=== PATIENT | male | born 1955 | race Caucasian/White ===

== ENCOUNTER 2017-06-03 16:12 | Observation (INO) ==
--- NOTE | 2017-06-03 16:31 | EKG Report ---
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
[2017-06-03 17:16] LABS: Basophils % 0.4 % (0.0-0.8); Eosinophils # 0.4 10*3/uL (0.0-0.87); Eosinophils % 4.6 % (0.00-10.9); Hematocrit 42.7 VOL% (42.0-52.0); Hemoglobin 14.4 GM/DL (14.0-18.0); Immature Granulocytes % 0.3 %; Immature Granulocytes Absolute 0.02 #; Lymphocytes # 2.5 10*3/uL (1.4-4.0); Lymphocytes % 31.8 % (21.2-54.2); Mean Corpuscular HGB Conc 33.7 GM/DL (32-36); Mean Corpuscular Hemoglobin 30 PG (27-34); Mean Corpuscular Volume 89.1 FL (87-102); Mean Platelet Volume 9.1 FL (9.6-12.0); Monocytes # 0.7 10*3/uL (0.11-0.8); Monocytes % 8.5 % (1.7-12.7); Neutrophils # 4.2 10*3/uL (1.4-7.4); Neutrophils % 54.4 % (38.7-73.9); Platelet Count 325 T/CUMM (130-400); Red Blood Count 4.79 MC/CUMM (3.8-5.5); Red Cell Distribution Width 13.2 % (9.3-17.3); White Blood Count 7.8 T/CUMM (4-12)
--- NOTE | 2017-06-03 17:21 | XRay Report ---
2 view chest 06/03/2017 5:15 PM Indication: Shortness of breath Comparison: March 27, 2016 Findings: Cardiomediastinal contours are stable. Bibasilar fibrosis. No acute osseous abnormalities. Visualized upper abdomen demonstrates no acute pathology. Impression: No acute cardiopulmonary findings PROCEDURE INTERPRETED AT [facility] DEPARTMENT OF RADIOLOGY Final Report Signed by: Derick Faria
[2017-06-03] MEDS ORDERED: CALCIUM CHLORIDE 1,000 MG/10 ML SYRINGE IV ONE (17:32)
[2017-06-03] MEDS ORDERED: ASPIRIN CHEW 81 MG TABLET PO STA (17:50)
[2017-06-03 17:54] LABS: Albumin 3.6 G/DL (3.4-5.0); Bilirubin,Total 0.6 MG/DL (0.2-1.0); Calcium 8.7 MG/DL (8.5-10.1); Osmolality,Calculated 277.5 MOS/KG (273-304); Potassium 4.1 MMOL/L (3.5-5.1); Total Protein 6.9 G/DL (6.4-8.3); Troponin I Only < 0.015 NG/ML (0.00-0.045)
[2017-06-03] MEDS ORDERED: ASPIRIN 325 MG TABLET ONE (18:49)
--- NOTE | 2017-06-03 18:56 | Emergency Department Note ---
I, Soila Guthrie, am scribing for, and in the presence of, Sergio Hess MD 17:08. IJimena Hans, MD, personally performed the services described in this documentation, ascribed by Soila Guthrie in my presence, and it is both accurate and complete [id number] . Arrival - Arrival Chief Complaint: Chest Pain Stated Complaint: SOB,Heart ED Nursing Triage Note: increased sob over the past two weeks with chest tightness that started today. Mode of Arrival: Ambulatory Limitations: No Limitations Source: Patient Time Seen by Provider: 06/03/17 16:35 - History of Present Illness HPI Narrative: Pt is a 62 y/o male who came to ED with c/o chest "tightness" that has been ongoing for a week, worsened in the past 3 days and constant today. Pt notes having SOB with tightness, and describes chest tightness not serious enough to call painful, just constant. Pt reports having 2x angioplasty with heart cath and those sxs were different from today's visit. Spouse notes pt only had SOB with both angioplasty. He states he felted the sxs then were a "pushed in" sensation, but now just having tightness. Along with sensation lasting longer, than previous days. Pt has associated sxs of nausea, and lightheadedness, but denies cough, rhinorrhea, dysuria. He admits to taking fluid pills. FMHx of heart disease and DM. Pt denies smoking hx. Onset (ago): day(s) Consistency: constant, intermittent Severity: moderate Severity scale (1-10): 4 Quality: aching Allergies/Adverse Reactions: Allergies Allergy/AdvReac Type Severity Reaction Status Date / Time No Known Allergies Allergy Verified 03/27/16 09:28 Home Medications: Home Medications Medication Instructions Recorded Confirmed Type Aspirin [Ecotrin] 325 mg PO DAILY 03/27/16 04/09/16 History Benazepril [Lotensin] 5 mg PO DAILY 03/27/16 04/09/16 History Carvedilol 6.25 mg PO BID 03/27/16 04/09/16 History Furosemide Tab [Lasix Tab] 40 mg PO BID 03/27/16 04/09/16 History Magnesium Oxide [Magnesium] 400 mg PO BID 03/27/16 04/09/16 History Meloxicam [Mobic] 15 mg PO DAILY 03/27/16 04/09/16 History NIFEdipine [Nifedipine ER] 30 mg PO DAILY 03/27/16 04/09/16 History Nitroglycerin [Nitroglycerin SL 0.4 mg SL Q5M PRN 03/27/16 04/09/16 History Tab] Omeprazole 20 mg PO DAILY 03/27/16 04/09/16 History Potassium Chloride [Klor-Con M20] 20 meq PO BID 03/27/16 04/09/16 History Rosuvastatin Calcium [Crestor] 5 mg PO BEDTIME 03/27/16 04/09/16 History Diclofenac Potassium 50 mg PO BID 04/09/16 04/09/16 History Levocetirizine Dihydrochloride 5 mg PO BEDTIME 04/09/16 04/09/16 History Venlafaxine [Effexor] 75 mg PO BID 04/09/16 04/09/16 History HYDROcodone/ACETAMIN 7.5-325 2 tablet PO Q4H PRN #25 tablet 04/12/16 Rx [[place] 7.5-325] Review of System - Review of System 12 point system: reviewed and no additional remarkable complaints except as stated - Review of System Constitutional: Absent: chills, diaphoresis, fever, weakness Head/Ears/Nose/Throat: Absent: nasal drainage Respiratory: Absent: cough, respiratory distress Cardiovascular: Present: chest pain (described as tightness more so). Absent: dyspnea on exertion, orthopnea, syncope Gastrointestinal: Absent: abdominal pain, nausea Musculoskeletal: Absent: arm pain, neck pain Skin: Absent: rash Neurological: Present: other (lightheadedness). Absent: headache, numbness, paresthesias, confusion, abnormal gait Psychiatric: Absent: anxiety Medical,Surgical,& Family Hx - Medical History Cardio: History of: Hypertension, [place] (x2) Comment Only: Cardiovascular Problems (BLOCKAGE ANGIOPLASTY DR BARRERA) Psychological: History of: Anxiety Disorders, Depression Rheumatology: History of;: Rheumatoid Arthritis (KNEES) Respiratory: History of: Obstructive Sleep Apnea (C PAP) Gastrointestinal: History of: GERD - Surgical History Cardiac Surgeries: Sugical HX of: Cardiac Catheterization (x2) HEENT Surgeries: Surgical HX of: Tonsilectomy & Adenoidectomy Abdominal Surgeries: Surgical HX of: Appendectomy, Cholecystectomy, Colonoscopy , EGD Reproductive Surgeries: Surgical HX of;: Vasectomy Orthopedic Surgeries: Surgical HX of;: Orthopedic Surgery (RIGHT SHLOULDER BILATERAL KNEE SCOPES), Total Knee Replacement (RIGHT 04/24) - Family History Family History: Reports;: Family Cancer (DAD GRANDMOTHER), Family Diabetes ( GRANDFATHER), Family Heart Disease (GRANDFATHER), Family Hypertension ( GRANDFATHER), Family Psychiatric Problems (MOM,) - Social History Smoking Status: Never smoker Marital Status: Lives With:: Spouse Functional capacity: independent ambulation Exam Vital Signs: Vital Signs Temperature 98.2 F 06/03/17 16:32 Pulse Rate 75 06/03/17 16:32 Respiratory Rate 20 06/03/17 16:32 Blood Pressure 130/84 06/03/17 16:32 O2 Sat by Pulse Oximetry 99 06/03/17 16:32 - General General appearance: alert, in no apparent distress - Head Head exam: Present: atraumatic, normocephalic - Eye Eye exam: Present: PERRL, EOMI - ENT ENT exam: Present: mucous membranes moist. Absent: mucous membranes dry - Neck Neck exam: Present: full ROM - Chest Chest inspection: Present: symmetric chest wall rise - Respiratory Respiratory exam: Present: normal lung sounds bilaterally. Absent: respiratory distress - Cardiovascular Cardiovascular exam: Present: regular rate, normal rhythm, normal heart sounds - Abdominal Exam Abdominal exam: Present: soft, normal bowel sounds. Absent: tenderness - Extremities Exam Extremities exam: Present: full ROM, pedal edema (trace BLE). Absent: tenderness - Neurological Exam Neurological exam: Present: alert, oriented X3, CN II-XII intact - Psychiatric Psychiatric exam: Present: normal affect, normal mood - Skin Skin exam: Present: warm, dry, intact, normal color Course Course Narrative: This patient was evaluated in the ER with cardiac workup that was all negative. He does have a history of angioplasty by Dr. Barrera and I recommended admission for rule out of anginal symptoms for acute coronary syndrome. The patient was agreeable to this and I discussed this with the hospitalist service on-call. He was treated with morphine and aspirin in the ER and placed on oxygen and was comfortable. Results - Labs CBC & BMP: 06/03/17 16:58 06/03/17 16:58 Lab Results: I have reviewed the patients labs Labs: Laboratory Tests 06/03/17 16:58 MPV 9.1 L Disposition Clinical Impression: Chest pain Case discussed with: patient, patient's family Disposition: Still a Patient Condition: Stable Instructions: Chest Pain (ED) Time of Disposition: 18:56
[2017-06-03] MEDS ORDERED: ONDANSETRON 4 MG/2 ML VIAL IV PRN (19:25)
[2017-06-03] MEDS ORDERED: GLUCAGON 1 MG VIAL IM PRN (19:35)
[2017-06-03] MEDS ORDERED: DEXTROSE 50% 25 GM/50 ML VIAL IV PRN (19:35)
--- NOTE | 2017-06-03 19:42 | Hospitalist History & Physical ---
Assessment and Plan (1) Diabetes Status: Acute Current Visit: Yes (2) Coronary artery disease Status: Acute Current Visit: No (3) Dyspnea on exertion Status: Acute Current Visit: No (4) Chest pain Status: Acute Assessment and plan: Our plan for this patient 1. Admit patient to telemetry 2. Cardiology consult 3. Fasting lipid profile 4. Troponins every 6 hours 3 5. Home meds as appropriate 6. Check an A1c Current Visit: Yes History of Present Illness Chief complaint: Chest discomfort and shortness of breath History of present illness: Mr. Alarcon is a 62 year old male with past medical history significant for coronary artery disease, hypertension, borderline diabetes and obstructive sleep apnea who is in his normal state of health in the past week. Patient had been noticing that he been getting short of breath when he lies down at night. He feels better when he sits up. He did not have chest pain at that time. Today when he sat down in a recliner he got short of breath again and then started noticing chest discomfort. It did not radiate he did not break out in a sweat there is no exertional component for it he felt a little dizzy. Patient came up to our hospital for further evaluation he sees Dr. Tristan is his advisory intern and Dr. Shravan Garrido is his primary care provider. I was consulted to admit him to the emergency room. Home Medications Medication Instructions Recorded Confirmed Type Aspirin [Ecotrin] 325 mg PO BEDTIME 03/27/16 06/03/17 History Benazepril [Lotensin] 2.5 mg PO QAM 03/27/16 06/03/17 History Carvedilol 12.5 mg PO BID 03/27/16 06/03/17 History Magnesium Oxide [Magnesium] 400 mg PO BID 03/27/16 06/03/17 History NIFEdipine [Nifedipine ER] 30 mg PO QAM 03/27/16 06/03/17 History Nitroglycerin [Nitroglycerin SL 0.4 mg SL Q5M PRN 03/27/16 06/03/17 History Tab] Omeprazole 20 mg PO BID 03/27/16 06/03/17 History Potassium Chloride [Klor-Con M20] 20 meq PO BID 03/27/16 06/03/17 History Rosuvastatin Calcium [Crestor] 5 mg PO BEDTIME 03/27/16 06/03/17 History Diclofenac Potassium 50 mg PO BID 04/09/16 06/03/17 History Levocetirizine Dihydrochloride 5 mg PO BEDTIME 04/09/16 06/03/17 History Cholecalciferol [Vitamin D3] 2,000 unit PO QAM 06/03/17 06/03/17 History Furosemide [Furosemide] 80 mg PO BID 06/03/17 06/03/17 History Liraglutide [Victoza 3-Baljinder] 1.8 mg SUBCUT QAM 06/03/17 06/03/17 History Metformin HCl [Metformin HCl] 500 mg PO DAILY W/SUPPER 06/03/17 06/03/17 History Naltrexone HCl/Bupropion HCl 2 each PO BID 06/03/17 06/03/17 History [Contrave ER 8-90 mg Tablet] [place]-3/Dha/Epa/Fish Oil [Fish Oil 2 each PO BEDTIME 06/03/17 06/03/17 History 1,000 mg Softgel] Allergies Allergy/AdvReac Type Severity Reaction Status Date / Time No Known Allergies Allergy Verified 03/27/16 09:28 Medical,Surgical,& Family Hx - Medical History Cardio: History of: Hypertension, [place] (x2) Comment Only: Cardiovascular Problems (BLOCKAGE ANGIOPLASTY DR TRISTAN) Psychological: History of: Anxiety Disorders, Depression Rheumatology: History of;: Rheumatoid Arthritis (KNEES) Respiratory: History of: Obstructive Sleep Apnea (C PAP) Gastrointestinal: History of: GERD - Surgical History Cardiac Surgeries: Sugical HX of: Cardiac Catheterization (x2) HEENT Surgeries: Surgical HX of: Tonsilectomy & Adenoidectomy Abdominal Surgeries: Surgical HX of: Appendectomy, Cholecystectomy, Colonoscopy , EGD Reproductive Surgeries: Surgical HX of;: Vasectomy Orthopedic Surgeries: Surgical HX of;: Orthopedic Surgery (RIGHT SHLOULDER BILATERAL KNEE SCOPES), Total Knee Replacement (RIGHT 04/24) - Family History Family History: Reports;: Family Cancer (DAD GRANDMOTHER), Family Diabetes ( GRANDFATHER), Family Heart Disease (GRANDFATHER), Family Hypertension ( GRANDFATHER), Family Psychiatric Problems (MOM,) - Social History Smoking Status: Never smoker Frequency of Alcohol Use: Rarely ROS unobtainable: due to endotracheal tube Exam - Constitutional Vitals: Period Temp Pulse Resp BP Sys/Yee Pulse Ox Last 24 Hr 98.2 F-98.2 F 67-75 20-24 130-146/77-95 96-99 - General General appearance: alert, in no apparent distress - Head Head exam: Present: atraumatic, normocephalic - Eye Eye exam: Present: PERRL, EOMI - ENT ENT exam: Present: mucous membranes moist. - Neck Neck exam: Present: full ROM - Chest Chest inspection: Present: symmetric chest wall rise - Respiratory Respiratory exam: Present: normal lung sounds bilaterally. - Cardiovascular Cardiovascular exam: Present: regular rate, normal rhythm, normal heart sounds - Abdominal Exam Abdominal exam: Present: soft, normal bowel sounds. - Extremities Exam Extremities exam: Present: full ROM, pedal edema (trace BLE). Absent: tenderness - Neurological Exam Neurological exam: Present: alert, oriented X3, CN II-XII intact - Psychiatric Psychiatric exam: Present: normal affect, normal mood - Skin Skin exam: Present: warm, dry, intact, normal color Results - Labs CBC & BMP: 06/03/17 16:58 06/03/17 16:58
[2017-06-03] MEDS ORDERED: ROSUVASTATIN 10 MG TABLET PO SCH (21:00)
[2017-06-03] MEDS ORDERED: BUPROPION HCL PO SCH (21:00)
[2017-06-03] MEDS ORDERED: [UNRECOGNIZED DRUG - OTHER] PO SCH (21:00)
[2017-06-03] MEDS ORDERED: NALTREXONE HCL PO SCH (21:00)
[2017-06-03] MEDS: DICLOFENAC POTASSIUM 50 MG TABLET PO SCH (21:47)
[2017-06-03] MEDS: ENOXAPARIN 40 MG/0.4 ML SYRINGE SUBCUT SCH (21:48)
[2017-06-03] MEDS: OMEGA 3 ACID ETHYL ESTERS 1 GM CAPSULE PO SCH (21:48)
[2017-06-03] MEDS: CARVEDILOL 12.5 MG TABLET PO SCH (21:48)
[2017-06-03] MEDS: FUROSEMIDE 80 MG TABLET PO SCH (21:49)
[2017-06-03] MEDS: POTASSIUM CHLORIDE 20 MEQ TABLET PO SCH (21:49)
[2017-06-03] MEDS: PANTOPRAZOLE 40 MG TABLET PO SCH (21:49)
[2017-06-03] MEDS: MAGNESIUM OXIDE 400 MG TABLET PO SCH (21:49)
[2017-06-03] MEDS: INSULIN REGULAR 100 UNIT/ML SUBCUT SCH (21:50)
--- NOTE | 2017-06-03 22:12 | EKG Report ---
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
[2017-06-03 23:46] LABS: Barbiturates Screen,Urine Negative (Negative); Benzodiazepines Screen,Urine Negative (Negative); Cannabinoid Screen,Urine Negative (Negative); Opiate Screen,Urine Negative (Negative); Phencyclidine Screen,Urine Negative (Negative)
[2017-06-04] MEDS: NITROGLYCERIN 2% OINT 1 INCH/GM PACK TOP SCH ×4 (01:10→19:03)
[2017-06-04 02:42] LABS: Risk Ratio 4.93
--- NOTE | 2017-06-04 07:56 | EKG Report ---
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
--- NOTE | 2017-06-04 07:57 | EKG Report ---
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
[2017-06-04] MEDS: INSULIN REGULAR 100 UNIT/ML SUBCUT SCH ×4 (08:05→21:09)
--- NOTE | 2017-06-04 08:48 | Cardiology Consult Note ---
<Cherelle Valerio - Last Filed: 06/04/17 10:04> Assessment and Plan - Time spent with patient Time spent with patient: Greater than 30 minutes (1) Atypical chest pain Status: Acute Assessment and plan: SEE PLAN OF CARE LISTED BELOW. Current Visit: Yes (2) Dyspnea Status: Acute Assessment and plan: SEE PLAN OF CARE LISTED BELOW. Current Visit: Yes (3) Orthopnea Status: Acute Assessment and plan: SEE PLAN OF CARE LISTED BELOW. Current Visit: Yes (4) Dyslipidemia Status: Chronic Assessment and plan: SEE PLAN OF CARE LISTED BELOW. Current Visit: Yes (5) Hypertension Status: Chronic Assessment and plan: SEE PLAN OF CARE LISTED BELOW. Current Visit: Yes (6) Diabetes Status: Chronic Assessment and plan: SEE PLAN OF CARE LISTED BELOW. Current Visit: Yes (7) Coronary artery disease Status: Chronic Assessment and plan: SEE PLAN OF CARE LISTED BELOW. Current Visit: No (8) Anxiety Status: Chronic Assessment and plan: SEE PLAN OF CARE LISTED BELOW. Current Visit: Yes (9) Former smoker Status: Chronic Assessment and plan: SEE PLAN OF CARE LISTED BELOW. Current Visit: No (10) Obesity Status: Chronic Assessment and plan: SEE PLAN OF CARE LISTED BELOW. Current Visit: Yes Qualifiers: Obesity classification: adult class 3 (BMI >= 40) (11) KIT (obstructive sleep apnea) Status: Chronic Assessment and plan: SEE PLAN OF CARE LISTED BELOW. Current Visit: Yes (12) GERD (gastroesophageal reflux disease) Status: Chronic Assessment and plan: SEE PLAN OF CARE LISTED BELOW. 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 Alarcon is a 62 year old male with known history of CAD, routinely followed by Dr. chase. Cardiac risk factors include: Known CAD, hypertension, dyslipidemia, obesity, sedentary lifestyle and former smoker ( quit in 2015). No significant family history of CAD. Past medical history includes: GERD, obstructive sleep apnea (wears CPAP nightly), anxiety and atrial tachycardia. His most recent heart catheterization was performed in 2013 which revealed significant single vessel coronary artery disease involving the diagonal to LAD. Mild disease in other vessels. Normal LV systolic function. Status post successful angioplasty of the ostium of the diagonal. Stent was not an option as it was not a vessel large enough for a stent and the location was not good for a stent. In 2009 patient received successful angioplasty of the LAD. The vessel was too small to recently placed the stent at that time. Patient was last seen in the cardiology clinic by Dr. chase April 2017. At that time, he was without complaints. Patient presented to [facility] for further evaluation of his shortness of breath and chest tightness. Patient reports that approximately 1 week ago he began waking up in the middle the night experiencing extreme shortness of breath. His breathing would improve when he would sit up. He does tell me that this occurred while he was on his trip and he was without his CPAP machine. He would wake up approximately every morning at 4:00 in the morning with acute dyspnea. No associated chest pain was noted. This would last several minutes and after sitting up his breathing would improve. After he came back home and started wearing his CPAP machine again this improved until yesterday evening he reports around 2:00 he became very dyspneic. When this started he was sitting in his chair. He is unable to identify any alleviating or aggravating factors. He tells me that his anxiety level began to rise. He then started to develop midsternal chest tightness. Nonradiating. He is unsure of exactly how long his chest tightness lasted. He does tell me it lasted less than 30 minutes. Unable to identify any alleviating or aggravating factors. He denies exertional component. Associated with shortness of breath. Denies associated nausea and diaphoresis. He felt that he should be further evaluated in the emergency department. He reports that his chest pain and shortness of breath are very different in nature as when he underwent angioplasty in 2013 and 2009. He reports that he did not receive nitroglycerin in the emergency department as his chest pain had already relieved spontaneously. He has not had any recurrent chest pain this hospitalization. Breathing has been under well control. Oxygen saturation stable. He has been compliant with his CPAP machine while being hospitalized. Patient has been admitted under hospital medicine's service. Housed on the telemetry unit. Cardiology has been consulted to further evaluate. Of note, patient reports that he does have a history of anxiety. He has been on Effexor for the last 15 years. This has done very well in controlling his anxiety. However, he has gained several pounds recently. He reports that he went from 280 pounds to 350 pounds. His who is at the bedside says that this could be related to different scales. This hospitalization he is waiting at 288 pounds. His primary care provider felt that his sudden increase in weight could be related to his Effexor. Therefore, this is being titrated off and he was started on contrave. Patient is concerned that his change in medications is the cause of his symptomology. He does not feel as though this is related to his heart. He denies any recent change in his exercise tolerance. Also denies exertional chest pain. Patient was seen and examined on the telemetry unit. He is currently without complaints of chest pain, heaviness or tightness. Denies shortness of breath. He is sitting up on side of the bed in no acute distress. Cardiac biomarkers have been negative 4. EKG is without acute changes. At this point, it is questionable whether his chest pain and acute dyspnea could be related to his recent change in medications. Patient does report that his symptomology is not similar to when he underwent angioplasty in the past. At this point, I will order echocardiogram. I will further discuss with Dr. Rodriguez regarding the need for further cardiac workup. Continue aspirin, beta-blockade, TYRESE inhibitor and nitrates. I will keep patient n.p.o. Further plan and addendum to follow. IMPRESSION AND PLAN: 1. CHEST PAIN AND SHORTNESS OF BREATH - Atypical in nature. Reports that his symptomology is very different from when he had angioplasty in the past. Patient ruled out for ME with negative cardiac biomarkers and EKG is without acute changes to suggest ischemia. Patient is very concerned that this is all related to his recent change in medications (Effexor and contrave) as he has been very anxious. At this point, I will order echocardiogram. Continue to cycle cardiac biomarkers and EKGs I will further discuss with Dr. Rodriguez regarding the need for further cardiac workup. Continue aspirin, beta-blockade , TYRESE inhibitor and nitrates. I will keep patient n.p.o. Further plan and addendum to follow. 2. HISTORY OF CAD, HISTORY OF NON-ST ELEVATION ME - Patient has a history of known CAD with previous angioplasty to diagonal and LAD. Continue 3. DYSLIPIDEMIA - Lipid panel reviewed. LDL 85. This is not at goal given patient's history of CAD. I will increase his lipid-lowering agent. 4. HYPERTENSION -well controlled. Continue current plan of care. 5. BORDERLINE DIABETES - Defer management to attending. Hemoglobin A1c 6.4. Blood sugar stable. Patient reports that he was recently started on metformin and Victoza by his PCP. 6. GERD - Continue PPI. 7. OBSTRUCTIVE SLEEP APNEA - Continue CPAP nightly. 8. OBESITY, WEIGHT GAIN - Encouraged weight loss with dietary restriction and regular exercise. Patient reports that he is currently using a weight loss clinic. 9. ANXIETY - Patient reports increase in anxiety level since his Effexor has been being titrated down. This could be contributing to his chest tightness. I will defer management of his anxiety to attending. 10. FORMER SMOKER - Chronic. Patient reports that he quit smoking in 2016. CC: Deandra Leonard MD - Home Medications and Allergies Home Medications: Home Medications Medication Instructions Recorded Confirmed Type Aspirin [Ecotrin] 325 mg PO BEDTIME 03/27/16 06/03/17 History Benazepril [Lotensin] 2.5 mg PO QAM 03/27/16 06/03/17 History Carvedilol 12.5 mg PO BID 03/27/16 06/03/17 History Magnesium Oxide [Magnesium] 400 mg PO BID 03/27/16 06/03/17 History NIFEdipine [Nifedipine ER] 30 mg PO QAM 03/27/16 06/03/17 History Nitroglycerin [Nitroglycerin SL 0.4 mg SL Q5M PRN 03/27/16 06/03/17 History Tab] Omeprazole 20 mg PO BID 03/27/16 06/03/17 History Potassium Chloride [Klor-Con M20] 20 meq PO BID 03/27/16 06/03/17 History Rosuvastatin Calcium [Crestor] 5 mg PO BEDTIME 03/27/16 06/03/17 History Diclofenac Potassium 50 mg PO BID 04/09/16 06/03/17 History Levocetirizine Dihydrochloride 5 mg PO BEDTIME 04/09/16 06/03/17 History Cholecalciferol [Vitamin D3] 2,000 unit PO QAM 06/03/17 06/03/17 History Furosemide [Furosemide] 80 mg PO BID 06/03/17 06/03/17 History Liraglutide [Victoza 3-Baljinder] 1.8 mg SUBCUT QAM 06/03/17 06/03/17 History Metformin HCl [Metformin HCl] 500 mg PO DAILY W/SUPPER 06/03/17 06/03/17 History Naltrexone HCl/Bupropion HCl 2 each PO BID 06/03/17 06/03/17 History [Contrave ER 8-90 mg Tablet] Alexander-3/Dha/Epa/Fish Oil [Fish Oil 2 each PO BEDTIME 06/03/17 06/03/17 History 1,000 mg Softgel] Allergies/Adverse Reactions: Allergies Allergy/AdvReac Type Severity Reaction Status Date / Time No Known Allergies Allergy Verified 03/27/16 09:28 - Constitutional Constitutional: Present: as per HPI, stops breathing during sleep, weight gain. Absent: chills, excessive sweating, fatigue, fever(s), weakness - Cardiovascular Cardiovascular: Present: as per HPI, chest pain at rest, dyspnea, orthopnea, PND. Absent: claudication, diaphoresis, dyspnea on exertion, edema, radiating jaw, neck or arm pain, lightheadedness, palpitations - Respiratory Respiratory: Present: as per HPI, dyspnea, snoring. Absent: dyspnea on exertion , wheezing, pain on inspiration, change in phlegm color - Gastrointestinal Gastrointestinal: Present: as per HPI. Absent: abdominal pain, change in bowel habits, coffee ground emesis, heartburn, hematemesis, hematochezia, melena, nausea, vomiting - Neurological Neurological: Present: as per HPI. Absent: abnormal gait, abnormal speech, behavioral changes, dizziness, frequent falls, headache(s), syncope - Psychiatric Psychiatric: Present: as per HPI, anxiety, depression, panic attacks - Hematologic/Lymphatic Hematologic/Lymphatic: Present: as per HPI. Absent: easy bleeding, easy bruising, lymphadenopathy Medical,Surgical,& Family Hx - Medical History Cardio: History of: CAD, Hypertension, ME (x2), Cardiovascular Problems ( BLOCKAGE ANGIOPLASTY DR TRISTAN) Psychological: History of: Anxiety Disorders, Depression Endocrine: History of: Diabetes Mellitus (NIDDM), Dyslipidemia Rheumatology: History of;: Rheumatoid Arthritis (KNEES) Respiratory: History of: Obstructive Sleep Apnea (C PAP) Gastrointestinal: History of: GERD - Surgical History Cardiac Surgeries: Sugical HX of: Cardiac Catheterization (x2) HEENT Surgeries: Surgical HX of: Tonsilectomy & Adenoidectomy Abdominal Surgeries: Surgical HX of: Appendectomy, Cholecystectomy, Colonoscopy , EGD Reproductive Surgeries: Surgical HX of;: Vasectomy Orthopedic Surgeries: Surgical HX of;: Orthopedic Surgery (RIGHT SHLOULDER BILATERAL KNEE SCOPES), Total Knee Replacement (RIGHT 04/24) - Family History Family History: Reports;: Family Cancer (DAD GRANDMOTHER), Family Diabetes ( GRANDFATHER), Family Hypertension (GRANDFATHER), Family Psychiatric Problems ( MOM,) - Social History Smoking Status: Former smoker Frequency of Alcohol Use: Rarely Type of Drug Use: None Marital Status: Lives With:: Spouse Functional capacity: independent ambulation Physical Examination Vital Signs Temp Pulse Resp BP Pulse Ox 98.2 F 74 24 130/77 96 06/03/17 16:14 06/03/17 16:14 06/03/17 16:14 06/03/17 16:14 06/03/17 16:14 Exam: General: Appears well with no apparent distress. Pleasant and cooperative. Appears comfortable. Obese. HEENT: PERRL, normocephalic, atraumatic. Mucous membranes moist. No jaundice noted. Conjunctiva moist and clear, sclerae anicteric Neck: No JVD/HJR, no thyromegaly or lymphadenopathy noted. No carotid bruit appreciated Cardiac: Regular rate and rhythm. No murmur rub or gallop. Lungs: Clear to auscultation without accessory muscle use to assist the respiratory pattern. Not requiring oxygen. Abdomen: Obese. Soft, bowel sounds normoactive. Nontender and nondistended. No abdominal bruit or thrill noted. No masses noted. Extremities: No clubbing, cyanosis noted. No edema noted. Upper extremity pulses 2+. Lower extremity pulses 2+. Capillary refill less than 3 seconds. Skin: No unusual lesions or rashes. No skin breakdown appreciated. Neuro: Awake, alert and oriented 3. Moves all extremities well without hemiparesis or paralysis. No essential tremor is appreciated. Result/EKG - Labs CBC & BMP: 06/03/17 16:58 06/03/17 16:58 Lab Results: I have reviewed the past 24 hour labs Labs: Laboratory Results - last 24 hr 06/03/17 06/03/17 06/03/17 16:58 16:58 16:58 WBC 7.8 RBC 4.79 Hgb 14.4 Hct 42.7 MCV 89.1 MCH 30 MCHC 33.7 RDW 13.2 Plt Count 325 MPV 9.1 L Neut % (Auto) 54.4 Lymph % (Auto) 31.8 [place] % (Auto) 8.5 Eos % (Auto) 4.6 Baso % (Auto) 0.4 Neut # (Auto) 4.2 Lymph # (Auto) 2.5 [place] # (Auto) 0.7 Eos # (Auto) 0.4 Baso # (Auto) 0.0 Immature Gran % 0.3 Nucleated RBC % 0.0 Immature Gran # 0.02 Nucleated RBCs # 0.00 Immature Plt Fraction 0.0 D-Dimer, Quantitative <= 0.5 Sodium 139 Potassium 4.1 Chloride 105 Carbon Dioxide 28 Anion Gap 10.1 BUN 19 H Creatinine 1.30 GFR Calculation 80 BUN/Creatinine Ratio 14.00 Glucose 81 POC Glucose Hemoglobin A1c Calculated Osmolality 277.5 Calcium 8.7 Total Bilirubin 0.60 AST 19 ALT 27 Alkaline Phosphatase 87 Total Creatine Kinase CK-MB (CK-2) Troponin I B-Natriuretic Peptide Total Protein 6.9 Albumin 3.6 Globulin 3.3 Albumin/Globulin Ratio 1.0 L Triglycerides Cholesterol LDL Cholesterol VLDL Cholesterol HDL Cholesterol Heart Disease Risk Ratio Lipase 164.0 Urine Opiates Screen Ur Barbiturates Screen Ur Phencyclidine Scrn U Amphetamine/Methamph U Benzodiazepines Scrn U Cocaine Metab Screen U Cannabinoids Screen 06/03/17 06/03/17 06/03/17 16:58 16:58 21:04 WBC RBC Hgb Hct MCV MCH MCHC RDW Plt Count MPV Neut % (Auto) Lymph % (Auto) [place] % (Auto) Eos % (Auto) Baso % (Auto) Neut # (Auto) Lymph # (Auto) [place] # (Auto) Eos # (Auto) Baso # (Auto) Immature Gran % Nucleated RBC % Immature Gran # Nucleated RBCs # Immature Plt Fraction D-Dimer, Quantitative Sodium Potassium Chloride Carbon Dioxide Anion Gap BUN Creatinine GFR Calculation BUN/Creatinine Ratio Glucose POC Glucose Hemoglobin A1c Calculated Osmolality Calcium Total Bilirubin AST ALT Alkaline Phosphatase Total Creatine Kinase 150 CK-MB (CK-2) 1.9 Troponin I < 0.015 < 0.015 B-Natriuretic Peptide 6 Total Protein Albumin Globulin Albumin/Globulin Ratio Triglycerides Cholesterol LDL Cholesterol VLDL Cholesterol HDL Cholesterol Heart Disease Risk Ratio Lipase Urine Opiates Screen Ur Barbiturates Screen Ur Phencyclidine Scrn U Amphetamine/Methamph U Benzodiazepines Scrn U Cocaine Metab Screen U Cannabinoids Screen 06/03/17 06/03/17 06/03/17 21:04 21:15 23:25 WBC RBC Hgb Hct MCV MCH MCHC RDW Plt Count MPV Neut % (Auto) Lymph % (Auto) [place] % (Auto) Eos % (Auto) Baso % (Auto) Neut # (Auto) Lymph # (Auto) [place] # (Auto) Eos # (Auto) Baso # (Auto) Immature Gran % Nucleated RBC % Immature Gran # Nucleated RBCs # Immature Plt Fraction D-Dimer, Quantitative Sodium Potassium Chloride Carbon Dioxide Anion Gap BUN Creatinine GFR Calculation BUN/Creatinine Ratio Glucose POC Glucose 85 Hemoglobin A1c 6.4 H Calculated Osmolality Calcium Total Bilirubin AST ALT Alkaline Phosphatase Total Creatine Kinase CK-MB (CK-2) Troponin I B-Natriuretic Peptide Total Protein Albumin Globulin Albumin/Globulin Ratio Triglycerides Cholesterol LDL Cholesterol VLDL Cholesterol HDL Cholesterol Heart Disease Risk Ratio Lipase Urine Opiates Screen Negative Ur Barbiturates Screen Negative Ur Phencyclidine Scrn Negative U Amphetamine/Methamph Negative U Benzodiazepines Scrn Negative U Cocaine Metab Screen Negative U Cannabinoids Screen Negative 06/03/17 06/04/17 06/04/17 23:43 01:01 01:01 WBC RBC Hgb Hct MCV MCH MCHC RDW Plt Count MPV Neut % (Auto) Lymph % (Auto) [place] % (Auto) Eos % (Auto) Baso % (Auto) Neut # (Auto) Lymph # (Auto) [place] # (Auto) Eos # (Auto) Baso # (Auto) Immature Gran % Nucleated RBC % Immature Gran # Nucleated RBCs # Immature Plt Fraction D-Dimer, Quantitative Sodium Potassium Chloride Carbon Dioxide Anion Gap BUN Creatinine GFR Calculation BUN/Creatinine Ratio Glucose POC Glucose Hemoglobin A1c Calculated Osmolality Calcium Total Bilirubin AST ALT Alkaline Phosphatase Total Creatine Kinase CK-MB (CK-2) Troponin I < 0.015 < 0.015 B-Natriuretic Peptide Total Protein Albumin Globulin Albumin/Globulin Ratio Triglycerides 280 H Cholesterol 143 LDL Cholesterol 85.0 VLDL Cholesterol 56.0 HDL Cholesterol 29 L Heart Disease Risk Ratio 4.93 Lipase Urine Opiates Screen Ur Barbiturates Screen Ur Phencyclidine Scrn U Amphetamine/Methamph U Benzodiazepines Scrn U Cocaine Metab Screen U Cannabinoids Screen 06/04/17 07:53 WBC RBC Hgb Hct MCV MCH MCHC RDW Plt Count MPV Neut % (Auto) Lymph % (Auto) [place] % (Auto) Eos % (Auto) Baso % (Auto) Neut # (Auto) Lymph # (Auto) [place] # (Auto) Eos # (Auto) Baso # (Auto) Immature Gran % Nucleated RBC % Immature Gran # Nucleated RBCs # Immature Plt Fraction D-Dimer, Quantitative Sodium Potassium Chloride Carbon Dioxide Anion Gap BUN Creatinine GFR Calculation BUN/Creatinine Ratio Glucose POC Glucose 100 Hemoglobin A1c Calculated Osmolality Calcium Total Bilirubin AST ALT Alkaline Phosphatase Total Creatine Kinase CK-MB (CK-2) Troponin I B-Natriuretic Peptide Total Protein Albumin Globulin Albumin/Globulin Ratio Triglycerides Cholesterol LDL Cholesterol VLDL Cholesterol HDL Cholesterol Heart Disease Risk Ratio Lipase Urine Opiates Screen Ur Barbiturates Screen Ur Phencyclidine Scrn U Amphetamine/Methamph U Benzodiazepines Scrn U Cocaine Metab Screen U Cannabinoids Screen Specialty Discharge - Follow Up or Referrals <Amanuel Rodriguez - Last Filed: 06/04/17 13:17> History of Present Illness - Consult Narrative History of present illness: Mr. Alarcon is a 62 year old male whom I personally interviewed and examined and reviewed his chart. I discussed this patient's case with Cherelle Valerio NP. I agree with the history as well as evaluation. The patient's symptomatology does not sound typical of what he has had previously with coronary artery disease. This all seems to center around a change in his medications recently pacifically his Effexor and medications for his weight loss. He has a feeling that the medications not extending long enough. Certainly these medications are out of my per review. I agree that we need echocardiogram to make sure this nocturnal dyspnea is not something cardiac. His chest x-ray certainly looks unremarkable and radiology report indicates no pathology. His cardiac enzymes/biomarkers are nondetectable and his BNP is 6 certainly indicating no evidence of heart failure. In light of all this certainly feels some this may be related to his medication change. If this time think echocardiogram will help us determine some issues are present or not. We will go ahead and start some low-dose as needed Tranxene. CC: Deandra Leonard MD Physical Examination Vital Signs Temp Pulse Resp BP Pulse Ox 98.2 F 74 24 130/77 96 06/03/17 16:14 06/03/17 16:14 06/03/17 16:14 06/03/17 16:14 06/03/17 16:14 Result/EKG - Labs CBC & BMP: 06/03/17 16:58 06/03/17 16:58 Labs: Laboratory Results - last 24 hr 06/03/17 06/03/17 06/03/17 16:58 16:58 16:58 WBC 7.8 RBC 4.79 Hgb 14.4 Hct 42.7 MCV 89.1 MCH 30 MCHC 33.7 RDW 13.2 Plt Count 325 MPV 9.1 L Neut % (Auto) 54.4 Lymph % (Auto) 31.8 [place] % (Auto) 8.5 Eos % (Auto) 4.6 Baso % (Auto) 0.4 Neut # (Auto) 4.2 Lymph # (Auto) 2.5 [place] # (Auto) 0.7 Eos # (Auto) 0.4 Baso # (Auto) 0.0 Immature Gran % 0.3 Nucleated RBC % 0.0 Immature Gran # 0.02 Nucleated RBCs # 0.00 Immature Plt Fraction 0.0 D-Dimer, Quantitative <= 0.5 Sodium 139 Potassium 4.1 Chloride 105 Carbon Dioxide 28 Anion Gap 10.1 BUN 19 H Creatinine 1.30 GFR Calculation 80 BUN/Creatinine Ratio 14.00 Glucose 81 POC Glucose Hemoglobin A1c Calculated Osmolality 277.5 Calcium 8.7 Total Bilirubin 0.60 AST 19 ALT 27 Alkaline Phosphatase 87 Total Creatine Kinase CK-MB (CK-2) Troponin I B-Natriuretic Peptide Total Protein 6.9 Albumin 3.6 Globulin 3.3 Albumin/Globulin Ratio 1.0 L Triglycerides Cholesterol LDL Cholesterol VLDL Cholesterol HDL Cholesterol Heart Disease Risk Ratio Lipase 164.0 Urine Opiates Screen Ur Barbiturates Screen Ur Phencyclidine Scrn U Amphetamine/Methamph U Benzodiazepines Scrn U Cocaine Metab Screen U Cannabinoids Screen 06/03/17 06/03/17 06/03/17 16:58 16:58 21:04 WBC RBC Hgb Hct MCV MCH MCHC RDW Plt Count MPV Neut % (Auto) Lymph % (Auto) [place] % (Auto) Eos % (Auto) Baso % (Auto) Neut # (Auto) Lymph # (Auto) [place] # (Auto) Eos # (Auto) Baso # (Auto) Immature Gran % Nucleated RBC % Immature Gran # Nucleated RBCs # Immature Plt Fraction D-Dimer, Quantitative Sodium Potassium Chloride Carbon Dioxide Anion Gap BUN Creatinine GFR Calculation BUN/Creatinine Ratio Glucose POC Glucose Hemoglobin A1c Calculated Osmolality Calcium Total Bilirubin AST ALT Alkaline Phosphatase Total Creatine Kinase 150 CK-MB (CK-2) 1.9 Troponin I < 0.015 < 0.015 B-Natriuretic Peptide 6 Total Protein Albumin Globulin Albumin/Globulin Ratio Triglycerides Cholesterol LDL Cholesterol VLDL Cholesterol HDL Cholesterol Heart Disease Risk Ratio Lipase Urine Opiates Screen Ur Barbiturates Screen Ur Phencyclidine Scrn U Amphetamine/Methamph U Benzodiazepines Scrn U Cocaine Metab Screen U Cannabinoids Screen 06/03/17 06/03/17 06/03/17 21:04 21:15 23:25 WBC RBC Hgb Hct MCV MCH MCHC RDW Plt Count MPV Neut % (Auto) Lymph % (Auto) [place] % (Auto) Eos % (Auto) Baso % (Auto) Neut # (Auto) Lymph # (Auto) [place] # (Auto) Eos # (Auto) Baso # (Auto) Immature Gran % Nucleated RBC % Immature Gran # Nucleated RBCs # Immature Plt Fraction D-Dimer, Quantitative Sodium Potassium Chloride Carbon Dioxide Anion Gap BUN Creatinine GFR Calculation BUN/Creatinine Ratio Glucose POC Glucose 85 Hemoglobin A1c 6.4 H Calculated Osmolality Calcium Total Bilirubin AST ALT Alkaline Phosphatase Total Creatine Kinase CK-MB (CK-2) Troponin I B-Natriuretic Peptide Total Protein Albumin Globulin Albumin/Globulin Ratio Triglycerides Cholesterol LDL Cholesterol VLDL Cholesterol HDL Cholesterol Heart Disease Risk Ratio Lipase Urine Opiates Screen Negative Ur Barbiturates Screen Negative Ur Phencyclidine Scrn Negative U Amphetamine/Methamph Negative U Benzodiazepines Scrn Negative U Cocaine Metab Screen Negative U Cannabinoids Screen Negative 06/03/17 06/04/17 06/04/17 23:43 01:01 01:01 WBC RBC Hgb Hct MCV MCH MCHC RDW Plt Count MPV Neut % (Auto) Lymph % (Auto) [place] % (Auto) Eos % (Auto) Baso % (Auto) Neut # (Auto) Lymph # (Auto) [place] # (Auto) Eos # (Auto) Baso # (Auto) Immature Gran % Nucleated RBC % Immature Gran # Nucleated RBCs # Immature Plt Fraction D-Dimer, Quantitative Sodium Potassium Chloride Carbon Dioxide Anion Gap BUN Creatinine GFR Calculation BUN/Creatinine Ratio Glucose POC Glucose Hemoglobin A1c Calculated Osmolality Calcium Total Bilirubin AST ALT Alkaline Phosphatase Total Creatine Kinase CK-MB (CK-2) Troponin I < 0.015 < 0.015 B-Natriuretic Peptide Total Protein Albumin Globulin Albumin/Globulin Ratio Triglycerides 280 H Cholesterol 143 LDL Cholesterol 85.0 VLDL Cholesterol 56.0 HDL Cholesterol 29 L Heart Disease Risk Ratio 4.93 Lipase Urine Opiates Screen Ur Barbiturates Screen Ur Phencyclidine Scrn U Amphetamine/Methamph U Benzodiazepines Scrn U Cocaine Metab Screen U Cannabinoids Screen 06/04/17 06/04/17 07:53 11:02 WBC RBC Hgb Hct MCV MCH MCHC RDW Plt Count MPV Neut % (Auto) Lymph % (Auto) [place] % (Auto) Eos % (Auto) Baso % (Auto) Neut # (Auto) Lymph # (Auto) [place] # (Auto) Eos # (Auto) Baso # (Auto) Immature Gran % Nucleated RBC % Immature Gran # Nucleated RBCs # Immature Plt Fraction D-Dimer, Quantitative Sodium Potassium Chloride Carbon Dioxide Anion Gap BUN Creatinine GFR Calculation BUN/Creatinine Ratio Glucose POC Glucose 100 91 Hemoglobin A1c Calculated Osmolality Calcium Total Bilirubin AST ALT Alkaline Phosphatase Total Creatine Kinase CK-MB (CK-2) Troponin I B-Natriuretic Peptide Total Protein Albumin Globulin Albumin/Globulin Ratio Triglycerides Cholesterol LDL Cholesterol VLDL Cholesterol HDL Cholesterol Heart Disease Risk Ratio Lipase Urine Opiates Screen Ur Barbiturates Screen Ur Phencyclidine Scrn U Amphetamine/Methamph U Benzodiazepines Scrn U Cocaine Metab Screen U Cannabinoids Screen
[2017-06-04] MEDS ORDERED: ASPIRIN EC 325 MG TABLET PO SCH (09:00)
[2017-06-04] MEDS ORDERED: BENAZEPRIL 5 MG TABLET PO SCH (09:00)
[2017-06-04] MEDS ORDERED: PNEUMOCOCCAL VACCINE (23 VALENT) 0.5 ML VIAL IM ONE (09:00)
[2017-06-04] MEDS ORDERED: ROSUVASTATIN 10 MG TABLET PO SCH (10:14)
[2017-06-04] MEDS ORDERED: CLORAZEPATE 3.75 MG TABLET PO PRN (13:09)
[2017-06-04] MEDS: DICLOFENAC POTASSIUM 50 MG TABLET PO SCH (14:55)
[2017-06-04] MEDS: POTASSIUM CHLORIDE 20 MEQ TABLET PO SCH ×2 (14:56→21:09)
[2017-06-04] MEDS: CARVEDILOL 12.5 MG TABLET PO SCH ×2 (14:56→21:09)
[2017-06-04] MEDS: MAGNESIUM OXIDE 400 MG TABLET PO SCH ×2 (14:56→21:08)
[2017-06-04] MEDS: FUROSEMIDE 80 MG TABLET PO SCH ×2 (14:56→21:09)
[2017-06-04] MEDS: CHOLECALCIFEROL 1,000 UNIT TABLET PO SCH (14:57)
[2017-06-04] MEDS: PANTOPRAZOLE 40 MG TABLET PO SCH ×2 (14:57→21:08)
--- NOTE | 2017-06-04 15:52 | Sleep Medicine Consult ---
Assessment and Plan (1) KIT (obstructive sleep apnea) Status: Chronic Assessment and plan: This patient has a history of severe obstructive sleep apnea in the past and on last evaluation in 2013, he had developed treatment emergent central sleep apnea that resolved with ASV therapy. The patient never followed up and did not get his ASV device. He is continue to use CPAP. He is symptomatic on CPAP and will need to be reevaluated. We will attempt to get a download from his old machine if possible. Meanwhile, we will place him on auto titration CPAP overnight and follow-up his results with that. Further evaluation and treatment will be forthcoming. Thank you for the consult. Current Visit: Yes (2) Hypertension Status: Chronic Assessment and plan: The prevalence rate for obstructive sleep apnea patients with hypertension is 35 %. That rate can be as high as 80% in patients who require 4 or more medications for blood pressure control. Current Visit: Yes (3) Diabetes Status: Chronic Assessment and plan: The prevalence rate for obstructive sleep apnea in patients with type 2 diabetes can be as high as 86%. Those patients with moderate to severe obstructive sleep apnea are at a greater risk for diabetic nephropathy and neuropathy. Compliance with CPAP therapy for these patients can lead to improvement in glycemic control and improvement in insulin sensitivity. Current Visit: Yes History of Present Illness Chief complaint: Sleep apnea History of present illness: Mr. Alarcon is a 62 year old male known to me from previous sleep evaluation. He had originally been diagnosed with obstructive sleep apnea in 2008 with an AHI of 33, consistent with severe sleep apnea. He was titrated with CPAP and did well for a few years but developed worsening symptoms of shortness of breath despite CPAP. He was reevaluated in 2013 and was found to have treatment emergent central sleep apnea. This was refractory to both CPAP and BiPAP. He was brought back again for ASV titration and had great results. He was prescribed ASV based on those results but it did not get the machine due to [id number] expense. He went back to sleeping with CPAP alone and did not follow-up in the sleep clinic. He recently has developed worsening shortness of breath and unrefreshing sleep. His states that she does not hear him snoring on CPAP of 10 cm. His CPAP machine is very old. Home Medications Medication Instructions Recorded Confirmed Type Aspirin [Ecotrin] 325 mg PO BEDTIME 03/27/16 06/03/17 History Benazepril [Lotensin] 2.5 mg PO QAM 03/27/16 06/03/17 History Carvedilol 12.5 mg PO BID 03/27/16 06/03/17 History Magnesium Oxide [Magnesium] 400 mg PO BID 03/27/16 06/03/17 History NIFEdipine [Nifedipine ER] 30 mg PO QAM 03/27/16 06/03/17 History Nitroglycerin [Nitroglycerin SL 0.4 mg SL Q5M PRN 03/27/16 06/03/17 History Tab] Omeprazole 20 mg PO BID 03/27/16 06/03/17 History Potassium Chloride [Klor-Con M20] 20 meq PO BID 03/27/16 06/03/17 History Rosuvastatin Calcium [Crestor] 5 mg PO BEDTIME 03/27/16 06/03/17 History Diclofenac Potassium 50 mg PO BID 04/09/16 06/03/17 History Levocetirizine Dihydrochloride 5 mg PO BEDTIME 04/09/16 06/03/17 History Cholecalciferol [Vitamin D3] 2,000 unit PO QAM 06/03/17 06/03/17 History Furosemide [Furosemide] 80 mg PO BID 06/03/17 06/03/17 History Liraglutide [Victoza 3-Baljinder] 1.8 mg SUBCUT QAM 06/03/17 06/03/17 History Metformin HCl [Metformin HCl] 500 mg PO DAILY W/SUPPER 06/03/17 06/03/17 History Naltrexone HCl/Bupropion HCl 2 each PO BID 06/03/17 06/03/17 History [Contrave ER 8-90 mg Tablet] [place]-3/Dha/Epa/Fish Oil [Fish Oil 2 each PO BEDTIME 06/03/17 06/03/17 History 1,000 mg Softgel] Allergies Allergy/AdvReac Type Severity Reaction Status Date / Time No Known Allergies Allergy Verified 03/27/16 09:28 Review of systems: Otherwise unremarkable from sleep standpoint. Exam (Pulmonay) H&P - Constitutional Vitals: Period Temp Pulse Resp BP Sys/Yee Pulse Ox Last 24 Hr 97.4 F-98.2 F 62-75 16-24 110-151/53-95 95-100 Exam: He is alert and responsive in no acute distress. Pupils equal round reactive to light and accommodation. Extraocular movements intact. Oropharynx with a class III Mallampati exam. Neck is supple without adenopathy or thyromegaly. No supraclavicular adenopathy is noted. Chest with symmetrical breath sounds without focal wheeze, rhonchi, or rales. Cardiac exam reveals a regular rhythm without murmur or gallop. Abdomen obese nontender without palpable hepatosplenomegaly or mass. Extremities without significant edema or clubbing. Neurologically, he is grossly intact and moves all extremities with good strength. Medical,Surgical,& Family Hx - Medical History Cardio: History of: CAD, Hypertension, MS (x2), Cardiovascular Problems ( BLOCKAGE ANGIOPLASTY DR BARRERA) Psychological: History of: Anxiety Disorders, Depression Endocrine: History of: Diabetes Mellitus (NIDDM), Dyslipidemia Rheumatology: History of;: Rheumatoid Arthritis (KNEES) Respiratory: History of: Obstructive Sleep Apnea (C PAP) Gastrointestinal: History of: GERD - Surgical History Cardiac Surgeries: Sugical HX of: Cardiac Catheterization (x2) HEENT Surgeries: Surgical HX of: Tonsilectomy & Adenoidectomy Abdominal Surgeries: Surgical HX of: Appendectomy, Cholecystectomy, Colonoscopy , EGD Reproductive Surgeries: Surgical HX of;: Vasectomy Orthopedic Surgeries: Surgical HX of;: Orthopedic Surgery (RIGHT SHLOULDER BILATERAL KNEE SCOPES), Total Knee Replacement (RIGHT 04/24) - Family History Family History: Reports;: Family Cancer (DAD GRANDMOTHER), Family Diabetes ( GRANDFATHER), Family Heart Disease (GRANDFATHER), Family Hypertension ( GRANDFATHER), Family Psychiatric Problems (MOM,) - Social History Smoking Status: Former smoker Frequency of Alcohol Use: Rarely Type of Drug Use: None Results - Labs CBC & BMP: 06/03/17 16:58 06/03/17 16:58 Labs: TSH not done, natruretic peptide level normal. Specialty Discharge - Follow Up or Referrals
--- NOTE | 2017-06-04 17:05 | Hospitalist Progress Note ---
Hospitalist: Subjective Interval history: Patient states that he is feeling better, denies chest pain, anxiety is better Exam - Constitutional Vitals: Period Temp Pulse Resp BP Sys/Yee Pulse Ox Last 24 Hr 97.4 F-98.1 F 62-75 16-20 110-151/53-87 94-100 Exam: General: No Acute Distress HEENT: Normocephalic, atraumatic, Extra ocular movements intact Neck: Supple, No JVD Chest: Clear to auscultation B/L CV: S1 + S2 audible without murmur, gallop or rub Abd: soft, NT, Non-distended, BS + Ext: No edema Skin: No purpura, bruising or rash Rheumatologic: No Joint deformities Neurologic: Strength 5/5 all extremities, no gross sensory deficits Results - Labs CBC & BMP: 06/03/17 16:58 06/03/17 16:58 - Impressions Assessment and Plan: Obesity Status: Chronic current Visit: No Continue Contrave Coronary artery disease Status: Chronic Assessment and plan: Stable no evidence of AK, atypical chest pain Current Visit: Yes Anxiety Status: Chronic Assessment and plan: Better after initiating home Contrave, as needed Tranxene Current Visit: Yes Essential hypertension Status: Chronic Assessment and plan: Controlled Current Visit: Yes Diabetes Status: Chronic Assessment and plan: Controlled Current Visit: Yes Specialty Discharge - Follow Up or Referrals
--- NOTE | 2017-06-04 18:24 | Order Completion Report ---
See report scanned to EMR
--- NOTE | 2017-06-04 18:55 | Event Note ---
I was requested to review the patient's records and discuss his clinical symptoms with the patient and family after he had an anxiety attack earlier today. I reviewed all of his cardiac testing, notes, labs, EKG, and history. I discussed his case with Cherelle Valerio RN, [employer]PERATOR who saw him earlier today. I summarized my impression with the patient and his family today. I think the patient's symptoms represent a panic/anxiety attack. His cardiac testing is benign. The patient had some recent adjustments in his medications. His anxiolytic medication Effexor was reduced in an attempt to help with weight loss. Simultaneously he was started on Contrave, which contains Wellbutrin which can worsen anxiety. I think this combination of adjustments in medication has contributed to the patient's problems with anxiety/panic recently. For now, I think he should stop the Contrave, continue his Effexor, and follow-up with the weight loss clinic on other options to help with weight loss. From a cardiac standpoint, he has had a benign workup and I think he could be discharged home for routine follow-up with his primary hand patcher Dr. Tristan.
[2017-06-04] MEDS ORDERED: CETIRIZINE 10 MG TABLET PO SCH (21:00)
[2017-06-04] MEDS: ENOXAPARIN 40 MG/0.4 ML SYRINGE SUBCUT SCH (21:07)
[2017-06-04] MEDS: OMEGA 3 ACID ETHYL ESTERS 1 GM CAPSULE PO SCH (21:10)
[2017-06-05] MEDS: NITROGLYCERIN 2% OINT 1 INCH/GM PACK TOP SCH ×2 (00:42→05:49)
[2017-06-05 08:01] VITALS: BP 131/64
[2017-06-05] MEDS ORDERED: ASPIRIN EC 81 MG TABLET PO SCH (09:00)
[2017-06-05] MEDS ORDERED: BENAZEPRIL 10 MG TABLET PO SCH (09:00)
[2017-06-05] MEDS: CHOLECALCIFEROL 1,000 UNIT TABLET PO SCH (09:10)
[2017-06-05] MEDS: POTASSIUM CHLORIDE 20 MEQ TABLET PO SCH (09:10)
[2017-06-05] MEDS: FUROSEMIDE 80 MG TABLET PO SCH (09:10)
[2017-06-05] MEDS: CARVEDILOL 12.5 MG TABLET PO SCH (09:10)
[2017-06-05] MEDS: MAGNESIUM OXIDE 400 MG TABLET PO SCH (09:11)
[2017-06-05] MEDS: PANTOPRAZOLE 40 MG TABLET PO SCH (09:11)
--- NOTE | 2017-06-05 10:34 | Discharge Summary ---
Hospital Course - Hospital Course Hospital Course: 62 year old WM with known history of CAD, followed by Dr. Tristan, for further evaluation of his shortness of breath and chest tightness. He also had a history of anxiety. He has been on Effexor for the last 15 years. This has done very well in controlling his anxiety. However, he has gained several pounds recently. His primary care provider felt that his sudden increase in weight could be related to his Effexor. Therefore, this is being titrated off and he was started on contrave. The patient was better by cardiology and ruled out for NV. If symptoms are mostly felt to be related to his anxiety issues. He did receive some Tranxene while in the hospital, and it did help his anxiety. He is now stable for discharge home. He has an appointment with his primary care physician to discuss further options for his anxiety as well as weight loss. Patient remained stable throughout the course of hospitalization. - Time spent with patient Time with patient DS: Less than 30 minutes Diagnosis - Discharge Diagnosis (1) Atypical chest pain Status: Resolved Specialty Discharge - Follow Up or Referrals Discharge Plan - Discharge Data Condition at Discharge: Stable Discharge Diet: advance to your usual diet Activity: resume usual activities as tolerated Hygiene: no restrictions Weight Bearing at Discharge: full weight bearing Driving: no restrictions Contact your physician if you experience:: Shortness of breath - Discharge Medications Continue Aspirin [Ecotrin] 325 mg PO BEDTIME Benazepril [Lotensin] 2.5 mg PO QAM Carvedilol 12.5 mg PO BID Rosuvastatin Calcium [Crestor] 5 mg PO BEDTIME Potassium Chloride [Klor-Con M20] 20 meq PO BID Magnesium Oxide [Magnesium] 400 mg PO BID Nitroglycerin [Nitroglycerin SL Tab] 0.4 mg SL Q5M PRN PRN Reason: Chest Pain Omeprazole 20 mg PO BID NIFEdipine [Nifedipine ER] 30 mg PO QAM Diclofenac Potassium 50 mg PO BID Levocetirizine Dihydrochloride 5 mg PO BEDTIME Furosemide 80 mg PO BID Liraglutide [Victoza 3-Baljinder] 1.8 mg SUBCUT QAM Naltrexone HCl/Bupropion HCl [Contrave ER 8-90 mg Tablet] 2 each PO BID Cholecalciferol [Vitamin D3] 2,000 unit PO QAM Metformin HCl 500 mg PO DAILY W/SUPPER [facility]-3/Dha/Epa/Fish Oil [Fish Oil 1,000 mg Softgel] 2 each PO BEDTIME - Follow Up or Referral - Forms/Instructions Instructions: Chest Pain (ED) Exam - Constitutional Vitals: Period Temp Pulse Resp BP Sys/Yee Pulse Ox Last 24 Hr 97.0 F-97.9 F 64-75 16-20 129-150/64-96 93-97 Exam: General: No Acute Distress HEENT: Normocephalic, atraumatic, Extra ocular movements intact Neck: Supple, No JVD Chest: Clear to auscultation B/L CV: S1 + S2 audible without murmur, gallop or rub Abd: soft, NT, Non-distended, BS + Ext: No edema Skin: No purpura, bruising or rash Rheumatologic: No Joint deformities Neurologic: Strength 5/5 all extremities, no gross sensory deficits Discharge Results Labs on day of discharge: Labs from last 24 hours 06/05/17 06/04/17 06/04/17 07:56 18:51 15:12 POC Glucose 95 109 H 97 06/04/17 11:02 POC Glucose 91 DS: Provider Date of admission: 06/03/17 19:25 Primary care physician: Shravan Garrido MD Attending physician on admission: Amanuel Mitchell MD Consults: 06/04/17 07:50 Consult to Physician [CONS] Routine Comment: Consulting Provider: Cardiology - [facility] Consult to Specialist Group: Cardiology Person Notified: Melanie Date Notified: 06/04/17 Time Notified: 07:55 06/04/17 16:44 Consult to Sleep Center [CONS] Routine Reason for Sleep Center: Sleep Center Physician Discharging clinician: Deandra Leonard MD
[2017-06-05] MEDS: INSULIN REGULAR 100 UNIT/ML SUBCUT SCH (10:52)
== END 2017-06-05 11:30 | disposition home or self-care (01) ==
LOC: N.ED 16:12 → N.EDINP 16:12 → SUATTDRO 19:25 → N.TELEN 19:55 → N.TELES 20:09
PROVIDERS: ADMIT Internal Medicine; ATTEND Hospitalist

== ENCOUNTER 2018-02-24 11:02 | Inpatient (IN) ==
[2018-02-24 11:30] LABS: Basophils % 0.4 % (0.0-0.8); Eosinophils # 0.3 10*3/uL (0.0-0.87); Hematocrit 49.8 VOL% (42.0-52.0); Hemoglobin 17.6 GM/DL (14.0-18.0); Immature Granulocytes % 0.3 %; Immature Granulocytes Absolute 0.03 #; Lymphocytes # 3.3 10*3/uL (1.4-4.0); Lymphocytes % 34.4 % (21.2-54.2); Mean Corpuscular HGB Conc 35.3 GM/DL (32-36); Mean Corpuscular Hemoglobin 31 PG (27-34); Mean Corpuscular Volume 86.6 FL (87-102); Mean Platelet Volume 9.4 FL (9.6-12.0); Monocytes % 9.9 % (1.7-12.7); Platelet Count 404 T/CUMM (130-400); Red Blood Count 5.75 MC/CUMM (3.8-5.5); Red Cell Distribution Width 12.5 % (9.3-17.3); White Blood Count 9.6 T/CUMM (4-12)
[2018-02-24 11:52] LABS: Alanine Aminotransferase 41 U/L (16-61); Albumin 4.2 G/DL (3.4-5.0); Alkaline Phosphatase 101 U/L (45-117); Aspartate Amino Transferase 22 U/L (0-37); Blood Urea Nitrogen 40 MG/DL (7-18); Calcium 9.9 MG/DL (8.5-10.1); Glucose 138 MG/DL (74-106); Potassium 3.2 MMOL/L (3.5-5.1); Sodium 136 MMOL/L (136-145); Total Protein 7.9 G/DL (6.4-8.3); Troponin I Only < 0.015 NG/ML (0.00-0.045)
[2018-02-24] MEDS ORDERED: POTASSIUM CHLORIDE 20 MEQ TABLET PO STA (14:05)
[2018-02-24] MEDS ORDERED: ACETAMINOPHEN 325 MG TABLET PO PRN (14:58)
[2018-02-24] MEDS ORDERED: ONDANSETRON 4 MG/2 ML VIAL IV PRN (14:58)
[2018-02-24] MEDS ORDERED: metOLazone 5 MG TABLET PO PRN (15:08)
[2018-02-24] MEDS ORDERED: NITROGLYCERIN SL 0.4 MG TABLET SL PRN (15:08)
[2018-02-24] MEDS: ENOXAPARIN 40 MG/0.4 ML SYRINGE SUBCUT SCH (16:51)
[2018-02-24] MEDS ORDERED: ENOXAPARIN 60 MG/0.6 ML SYRINGE SUBCUT ONE (18:06)
[2018-02-24] MEDS: CARVEDILOL 25 MG TABLET PO SCH ×2 (18:33→23:58)
[2018-02-24] MEDS: VENLAFAXINE 75 MG TABLET PO SCH (20:29)
[2018-02-24] MEDS: POTASSIUM CHLORIDE 20 MEQ TABLET PO SCH (20:29)
[2018-02-24] MEDS: MAGNESIUM OXIDE 400 MG TABLET PO SCH (20:29)
[2018-02-24] MEDS ORDERED: ROSUVASTATIN 10 MG TABLET PO SCH (21:00)
[2018-02-24] MEDS ORDERED: CARVEDILOL 12.5 MG TABLET PO SCH (21:00)
[2018-02-25 04:48] LABS: Basophils % 0.5 % (0.0-0.8); Eosinophils # 0.3 10*3/uL (0.0-0.87); Eosinophils % 3.4 % (0.00-10.9); Hematocrit 44.6 VOL% (42.0-52.0); Hemoglobin 15.6 GM/DL (14.0-18.0); Immature Granulocytes % 0.6 %; Immature Granulocytes Absolute 0.05 #; Lymphocytes # 3.1 10*3/uL (1.4-4.0); Lymphocytes % 37.6 % (21.2-54.2); Mean Corpuscular Hemoglobin 31 PG (27-34); Mean Corpuscular Volume 87.6 FL (87-102); Mean Platelet Volume 9.9 FL (9.6-12.0); Monocytes # 0.9 10*3/uL (0.11-0.8); Monocytes % 11.2 % (1.7-12.7); Neutrophils # 3.8 10*3/uL (1.4-7.4); Neutrophils % 46.7 % (38.7-73.9); Platelet Count 348 T/CUMM (130-400); Red Blood Count 5.09 MC/CUMM (3.8-5.5); Red Cell Distribution Width 12.6 % (9.3-17.3); White Blood Count 8.2 T/CUMM (4-12)
[2018-02-25 05:24] LABS: Calcium 9.1 MG/DL (8.5-10.1); Potassium 2.6 MMOL/L (3.5-5.1); Risk Ratio 6.88; Thyroid Stimulating Hormone 3.04 uIU/ml (0.358-3.74); VLDL CHOLESTEROL 131.4 MG/DL
[2018-02-25] MEDS: CARVEDILOL 25 MG TABLET PO SCH ×3 (06:11→18:20)
[2018-02-25] MEDS: CHOLECALCIFEROL 1,000 UNIT TABLET PO SCH (08:32)
[2018-02-25] MEDS: BENAZEPRIL 5 MG TABLET PO SCH (08:32)
[2018-02-25] MEDS: VENLAFAXINE 75 MG TABLET PO SCH ×2 (08:33→20:48)
[2018-02-25] MEDS: CETIRIZINE 10 MG TABLET PO SCH (08:33)
[2018-02-25] MEDS: MAGNESIUM OXIDE 400 MG TABLET PO SCH ×2 (08:33→20:48)
[2018-02-25] MEDS: POTASSIUM CHLORIDE 20 MEQ TABLET PO SCH ×2 (08:33→20:51)
[2018-02-25] MEDS: PANTOPRAZOLE 40 MG TABLET PO SCH (08:33)
[2018-02-25] MEDS: ENOXAPARIN 40 MG/0.4 ML SYRINGE SUBCUT SCH (08:34)
[2018-02-25] MEDS: ASPIRIN EC 325 MG TABLET PO SCH (09:03)
[2018-02-25] MEDS: POTASSIUM CHLORIDE RIDER 10 MEQ in PREMIX 1 EACH IV PRN ×5 (09:44→18:20)
[2018-02-25] MEDS ORDERED: POTASSIUM CHLORIDE RIDER 10 MEQ in PREMIX 1 EACH IV PRN (14:05)
[2018-02-25] MEDS ORDERED: DIAZEPAM 5 MG TABLET PO ONE (14:05)
[2018-02-25] MEDS ORDERED: MAGNESIUM SULF RIDER 2 GM in PREMIX 1 EACH IV PRN (14:05)
[2018-02-25] MEDS ORDERED: diphenhydrAMINE CAP 25 MG CAPSULE PO ONE (14:05)
[2018-02-25] MEDS ORDERED: SODIUM CHLORIDE 0.9% 1,000 ML IV SCH (14:30)
[2018-02-25] MEDS ORDERED: LIDOCAINE 1% 20 ML VIAL ONE (14:44)
[2018-02-25] MEDS ORDERED: fentaNYL 100 MCG/2 ML VIAL ONE (14:44)
[2018-02-25] MEDS ORDERED: MIDAZOLAM 2 MG/2 ML VIAL ONE (14:44)
[2018-02-25] MEDS ORDERED: HEPARIN 5,000 UNIT/1 ML VIAL ONE (14:45)
[2018-02-26] MEDS: CARVEDILOL 25 MG TABLET PO SCH ×3 (00:12→12:05)
[2018-02-26 05:46] LABS: Basophils % 0.6 % (0.0-0.8); Eosinophils # 0.3 10*3/uL (0.0-0.87); Eosinophils % 4.7 % (0.00-10.9); Hematocrit 44.6 VOL% (42.0-52.0); Hemoglobin 14.8 GM/DL (14.0-18.0); Immature Granulocytes % 0.4 %; Immature Granulocytes Absolute 0.03 #; Lymphocytes # 2.3 10*3/uL (1.4-4.0); Lymphocytes % 33.6 % (21.2-54.2); Mean Corpuscular HGB Conc 33.2 GM/DL (32-36); Mean Corpuscular Hemoglobin 30 PG (27-34); Mean Platelet Volume 9.5 FL (9.6-12.0); Monocytes # 0.8 10*3/uL (0.11-0.8); Monocytes % 12.1 % (1.7-12.7); Neutrophils # 3.4 10*3/uL (1.4-7.4); Neutrophils % 48.6 % (38.7-73.9); Platelet Count 307 T/CUMM (130-400); Red Cell Distribution Width 12.4 % (9.3-17.3); White Blood Count 6.9 T/CUMM (4-12)
[2018-02-26 05:55] LABS: PT Patient Result 10.4 SECS
[2018-02-26 06:05] LABS: Calcium 8.6 MG/DL (8.5-10.1); Osmolality,Calculated 278.8 MOS/KG (273-304); Potassium 3.3 MMOL/L (3.5-5.1)
[2018-02-26] MEDS: POTASSIUM CHLORIDE 20 MEQ TABLET PO SCH (09:15)
[2018-02-26] MEDS: PANTOPRAZOLE 40 MG TABLET PO SCH (09:15)
[2018-02-26] MEDS: CHOLECALCIFEROL 1,000 UNIT TABLET PO SCH (09:15)
[2018-02-26] MEDS: ASPIRIN EC 325 MG TABLET PO SCH (09:15)
[2018-02-26] MEDS: BENAZEPRIL 5 MG TABLET PO SCH (09:15)
[2018-02-26] MEDS: VENLAFAXINE 75 MG TABLET PO SCH (09:15)
[2018-02-26] MEDS: MAGNESIUM OXIDE 400 MG TABLET PO SCH (09:15)
[2018-02-26] MEDS: CETIRIZINE 10 MG TABLET PO SCH (09:19)
[2018-02-26] MEDS ORDERED: FUROSEMIDE 80 MG TABLET PO SCH (16:00)
[2018-02-26 16:18] VITALS: BP 132/79
[2018-02-26] MEDS ORDERED: CARVEDILOL 25 MG TABLET PO SCH (17:00)
== END 2018-02-26 17:01 | disposition home or self-care (01) | DRG 392 ==
LOC: N.ED 11:02 → SUATTDRO 14:05 → N.EDINP 14:05 → N.2E 16:54
PROVIDERS: ADMIT Internal Medicine Nephrology; ATTEND Internal Medicine
PROC: CLCCHCL (ICD-10-PCS; 2018-02-25 15:15)

== ENCOUNTER 2021-09-20 05:55 | Inpatient (IN) ==
[2021-09-14 16:07] LABS: Bilirubin,Urine Negative (Negative); Blood, Urine Moderate mg/dL (Negative); Glucose,Urine (UA) Negative (Negative); Hyaline Casts,Urine 20 /LPF (0-3); Ketones,Urine Negative (Negative); Mucus,Urine Occasional /LPF (Occasional); Nitrite,Urine Negative (Negative); Protein,Urine Negative; RBC,Urine 3 /HPF (0-4); Squamous Epithelial Cell,Urine Occasional /HPF (0-10); Urine Appearance CLEAR (Clear); Urine Color Yellow (Yellow); Urine Specific Gravity 1.017 (1.001-1.035); Urine Urobilinogen < 2.0 EU/DL (<2.0)
[2021-09-14 16:21] LABS: Basophils % 0.3 % (0.0-0.8); Eosinophils # 0.4 10*3/uL (0.0-0.87); Eosinophils % 3.8 % (0.00-10.9); Hematocrit 49.3 VOL% (42.0-52.0); Hemoglobin 16.2 GM/DL (14.0-18.0); Immature Granulocytes % 0.4 %; Immature Granulocytes Absolute 0.04 #; Lymphocytes # 2.7 10*3/uL (1.4-4.0); Lymphocytes % 28.4 % (21.2-54.2); Mean Corpuscular HGB Conc 32.9 GM/DL (32-36); Mean Corpuscular Volume 91.1 FL (87-102); Mean Platelet Volume 9.5 FL (9.6-12.0); Monocytes % 7.6 % (1.7-12.7); Neutrophils % 59.5 % (38.7-73.9); Platelet Count 434 T/CUMM (130-400); Red Blood Count 5.41 MC/CUMM (3.8-5.5); Red Cell Distribution Width 13.2 % (9.3-17.3); White Blood Count 9.7 T/CUMM (4-12)
[2021-09-14 16:45] LABS: PT Patient Result 11.2 SECS (10.5-12.0); Partial Thromboplastin Time 26.8 SECS (23.8-32.1)
[2021-09-14 16:49] LABS: Bilirubin,Total 0.7 MG/DL (0.20-1.00); Calcium 9.9 MG/DL (8.5-10.1); Potassium 3.7 MMOL/L (3.5-5.1); Total Protein 7.4 G/DL (6.4-8.2)
[2021-09-20] MEDS ORDERED: ACETAMINOPHEN 500 MG TABLET PO ONE (06:00)
[2021-09-20] MEDS ORDERED: GABAPENTIN 400 MG CAPSULE PO ONE (06:00)
[2021-09-20] MEDS ORDERED: VANCOMYCIN INJ 1,000 MG in SODIUM CHLORIDE 0.9% 250 ML IV ONE (06:00)
[2021-09-20] MEDS ORDERED: FAMOTIDINE 20 MG TABLET PO ONE (06:00)
[2021-09-20] MEDS ORDERED: ONDANSETRON 4 MG/2 ML VIAL ONE (06:21)
[2021-09-20] MEDS ORDERED: LIDOCAINE 2% 5 ML VIAL ONE (06:21)
[2021-09-20] MEDS ORDERED: propofoL 200 MG/20 ML VIAL IV ONE (06:21)
[2021-09-20] MEDS ORDERED: ROCURONIUM 50 MG/5 ML VIAL IV ONE (06:21)
[2021-09-20] MEDS ORDERED: fentaNYL 100 MCG/2 ML VIAL ONE ×2 (06:22→07:59)
[2021-09-20] MEDS ORDERED: MIDAZOLAM 2 MG/2 ML VIAL ONE (06:22)
[2021-09-20] MEDS ORDERED: DEXAMETHASONE 4 MG/1 ML VIAL ONE (06:31)
[2021-09-20] MEDS ORDERED: ROPIVACAINE 0.5% 30 ML VIAL ONE (06:31)
[2021-09-20] MEDS ORDERED: LIDOCAINE 1% 5 ML VIAL ONE (06:31)
[2021-09-20] MEDS ORDERED: LACTATED RINGERS 1,000 ML IV SCH (07:00)
[2021-09-20] MEDS ORDERED: ONDANSETRON 4 MG/2 ML VIAL IV PRN ×2 (07:08→09:22)
[2021-09-20] MEDS ORDERED: BISACODYL 10 MG SUPP RECTAL PRN (07:08)
[2021-09-20] MEDS ORDERED: TEMAZEPAM 7.5 MG CAPSULE PO PRN (07:08)
[2021-09-20] MEDS ORDERED: MAGNESIUM HYDROXIDE SUSP 30 ML UDCUP PO PRN (07:08)
[2021-09-20] MEDS ORDERED: LACTULOSE 20 GM/30 ML UDCUP PO PRN (07:08)
[2021-09-20] MEDS ORDERED: PROMETHAZINE 25 MG/1 ML VIAL IM PRN (07:08)
[2021-09-20] MEDS ORDERED: MORPHINE 2 MG/1 ML SYRINGE IV PRN ×2 (07:08→23:28)
[2021-09-20] MEDS ORDERED: predniSONE 5 MG TABLET PO PRN (07:11)
[2021-09-20] MEDS ORDERED: COLCHICINE 0.6 MG CAPSULE PO PRN (07:11)
[2021-09-20] MEDS ORDERED: GLUCAGON 1 MG VIAL IM PRN (07:12)
[2021-09-20] MEDS ORDERED: DEXTROSE 50% 25 GM/50 ML SYRINGE IV PRN (07:12)
[2021-09-20] MEDS ORDERED: ALBUTEROL/IPRATROPIUM 3 ML NEB RESP TX ONE (07:28)
[2021-09-20] MEDS ORDERED: SEVOFLURANE 1 UNIT/15 MINUTE INH ONE ×2 (08:28)
[2021-09-20] MEDS ORDERED: SODIUM CHLORIDE 0.9% 100 ML IV ONE (08:28)
[2021-09-20] MEDS ORDERED: LACTATED RINGERS 1,000 ML IV ONE (08:28)
[2021-09-20] MEDS ORDERED: TRANEXAMIC ACID 1,000 MG/10 ML VIAL ONE (08:28)
[2021-09-20] MEDS ORDERED: SUCCINYLCHOLINE 200 MG/10 ML VIAL ONE (08:28)
[2021-09-20] MEDS ORDERED: HYDROCORTISONE 100 MG VIAL ONE (08:28)
[2021-09-20] MEDS ORDERED: GLYCOPYRROLATE 0.4 MG/2 ML VIAL ONE (08:29)
[2021-09-20] MEDS ORDERED: NEOSTIGMINE 10 MG/10 ML VIAL ONE (08:29)
[2021-09-20] MEDS ORDERED: HYDROmorphone 2 MG/1 ML VIAL ONE (09:22)
[2021-09-20] MEDS: HYDROmorphone 2 MG/1 ML VIAL IV PRN ×4 (09:25→09:40)
[2021-09-20] MEDS ORDERED: PNEUMOCOCCAL VACCINE (13 VALENT) 0.5 ML SYRINGE IM ONE (10:46)
[2021-09-20] MEDS: ceFAZolin 2,000 MG/50 ML DUPLEX IV SCH ×2 (15:20→21:32)
[2021-09-20] MEDS: INSULIN REGULAR 100 UNIT/ML SUBCUT SCH ×3 (16:09→20:15)
[2021-09-20] MEDS: carvediloL 6.25 MG TABLET PO SCH (17:05)
[2021-09-20] MEDS: FONDAPARINUX 2.5 MG/0.5 ML SYRINGE SUBCUT SCH (17:05)
[2021-09-20] MEDS: FUROSEMIDE 80 MG TABLET PO SCH (17:05)
[2021-09-20] MEDS: ASPIRIN EC 325 MG TABLET PO SCH (20:41)
[2021-09-20] MEDS: DOCUSATE SODIUM 100 MG CAPSULE PO SCH (20:41)
[2021-09-20] MEDS: MAGNESIUM OXIDE 400 MG TABLET PO SCH (20:42)
[2021-09-20] MEDS: CETIRIZINE 10 MG TABLET PO SCH (20:42)
[2021-09-20] MEDS: VENLAFAXINE 75 MG TABLET PO SCH (20:42)
[2021-09-20] MEDS: POTASSIUM CHLORIDE 10 MEQ TABLET PO SCH (20:42)
[2021-09-20] MEDS: CHOLECALCIFEROL 1,000 UNIT TABLET PO SCH (20:42)
[2021-09-20] MEDS ORDERED: NON-FORMULARY MEDICATION (Selenium 200 mcg Tablet) PO SCH (21:00)
[2021-09-20] MEDS ORDERED: CALCIUM CARBONATE CHEW 500 MG TABLET PO ONE (21:34)
[2021-09-20] MEDS: NITROGLYCERIN SL 0.4 MG TABLET SL PRN ×2 (23:11→23:25)
[2021-09-20] MEDS: MORPHINE 2 MG/1 ML SYRINGE IV PRN (23:33)
[2021-09-20 23:39] LABS: Basophils % 0.2 % (0.0-0.8); Eosinophils # 0.1 10*3/uL (0.0-0.87); Eosinophils % 0.5 % (0.00-10.9); Hematocrit 41.6 VOL% (42.0-52.0); Hemoglobin 13.4 GM/DL (14.0-18.0); Immature Granulocytes % 0.4 %; Immature Granulocytes Absolute 0.05 #; Lymphocytes # 3.2 10*3/uL (1.4-4.0); Lymphocytes % 26.4 % (21.2-54.2); Mean Corpuscular HGB Conc 32.2 GM/DL (32-36); Mean Corpuscular Volume 92.2 FL (87-102); Monocytes % 11.5 % (1.7-12.7); Platelet Count 320 T/CUMM (130-400); Red Blood Count 4.51 MC/CUMM (3.8-5.5); Red Cell Distribution Width 13.2 % (9.3-17.3); White Blood Count 12.1 T/CUMM (4-12)
[2021-09-20] MEDS ORDERED: ALUM/MAG/SIMETH/LIDO VISC 1:1 30 ML BOTTLE PO ONE (23:57)
[2021-09-21 05:48] LABS: Basophils % 0.2 % (0.0-0.8); Eosinophils # 0.1 10*3/uL (0.0-0.87); Eosinophils % 1.1 % (0.00-10.9); Hematocrit 41.1 VOL% (42.0-52.0); Immature Granulocytes % 0.5 %; Immature Granulocytes Absolute 0.05 #; Lymphocytes # 2.7 10*3/uL (1.4-4.0); Mean Corpuscular HGB Conc 31.6 GM/DL (32-36); Mean Corpuscular Volume 95.8 FL (87-102); Mean Platelet Volume 9.3 FL (9.6-12.0); Monocytes % 12.9 % (1.7-12.7); Neutrophils % 57.3 % (38.7-73.9); Platelet Count 315 T/CUMM (130-400); Red Blood Count 4.29 MC/CUMM (3.8-5.5); Red Cell Distribution Width 13.6 % (9.3-17.3); White Blood Count 9.6 T/CUMM (4-12)
[2021-09-21 06:03] LABS: Calcium 8.3 MG/DL (8.5-10.1); Osmolality,Calculated 284.3 MOS/KG (273-304); Potassium 3.6 MMOL/L (3.5-5.1)
[2021-09-21] MEDS ORDERED: ACETAMINOPHEN 325 MG TABLET PO PRN (07:10)
[2021-09-21] MEDS ORDERED: DEXTROSE 10% 250 ML BAG IV PRN (09:00)
[2021-09-21] MEDS: CHOLECALCIFEROL 1,000 UNIT TABLET PO SCH ×2 (09:19→20:22)
[2021-09-21] MEDS: carvediloL 6.25 MG TABLET PO SCH ×2 (09:20→16:42)
[2021-09-21] MEDS: VENLAFAXINE 75 MG TABLET PO SCH ×2 (09:20→20:21)
[2021-09-21] MEDS: POTASSIUM CHLORIDE 10 MEQ TABLET PO SCH ×2 (09:20→20:22)
[2021-09-21] MEDS: MAGNESIUM OXIDE 400 MG TABLET PO SCH ×2 (09:20→20:22)
[2021-09-21] MEDS: ENALAPRIL 5 MG TABLET PO SCH (09:20)
[2021-09-21] MEDS: FUROSEMIDE 80 MG TABLET PO SCH ×2 (09:20→16:43)
[2021-09-21] MEDS: allopurinoL 100 MG TABLET PO SCH (09:20)
[2021-09-21] MEDS: PANTOPRAZOLE 40 MG TABLET PO SCH (09:21)
[2021-09-21] MEDS: EZETIMIBE 10 MG TABLET PO SCH (09:21)
[2021-09-21] MEDS: DOCUSATE SODIUM 100 MG CAPSULE PO SCH ×2 (09:21→20:21)
[2021-09-21] MEDS: INSULIN REGULAR 100 UNIT/ML SUBCUT SCH ×4 (10:53→22:45)
[2021-09-21] MEDS: MORPHINE 2 MG/1 ML SYRINGE IV PRN ×3 (14:00→22:38)
[2021-09-21] MEDS: FONDAPARINUX 2.5 MG/0.5 ML SYRINGE SUBCUT SCH (17:45)
[2021-09-21] MEDS ORDERED: ALUMINUM/MAGNES/SIMETH MAX STR 30 ML UDCUP PO PRN (18:00)
[2021-09-21] MEDS: diphenhydrAMINE CAP 25 MG CAPSULE PO PRN (18:40)
[2021-09-21] MEDS: CETIRIZINE 10 MG TABLET PO SCH (20:21)
[2021-09-21] MEDS: ASPIRIN EC 325 MG TABLET PO SCH (20:21)
[2021-09-22] MEDS: MORPHINE 2 MG/1 ML SYRINGE IV PRN (06:45)
[2021-09-22] MEDS: INSULIN REGULAR 100 UNIT/ML SUBCUT SCH ×4 (07:17→21:18)
[2021-09-22] MEDS: carvediloL 6.25 MG TABLET PO SCH ×2 (08:50→16:36)
[2021-09-22] MEDS: ENALAPRIL 5 MG TABLET PO SCH (08:51)
[2021-09-22] MEDS: MAGNESIUM OXIDE 400 MG TABLET PO SCH ×2 (08:51→21:17)
[2021-09-22] MEDS: EZETIMIBE 10 MG TABLET PO SCH (08:51)
[2021-09-22] MEDS: PANTOPRAZOLE 40 MG TABLET PO SCH (08:51)
[2021-09-22] MEDS: VENLAFAXINE 75 MG TABLET PO SCH ×2 (08:51→21:17)
[2021-09-22] MEDS: allopurinoL 100 MG TABLET PO SCH (08:51)
[2021-09-22] MEDS: CHOLECALCIFEROL 1,000 UNIT TABLET PO SCH ×2 (08:51→21:17)
[2021-09-22] MEDS: FUROSEMIDE 80 MG TABLET PO SCH ×2 (08:51→16:32)
[2021-09-22] MEDS: POTASSIUM CHLORIDE 10 MEQ TABLET PO SCH ×2 (08:51→21:17)
[2021-09-22] MEDS: DOCUSATE SODIUM 100 MG CAPSULE PO SCH ×2 (08:52→21:16)
[2021-09-22] MEDS ORDERED: metOLazone 5 MG TABLET PO SCH (10:00)
[2021-09-22] MEDS: diphenhydrAMINE CAP 25 MG CAPSULE PO PRN (16:36)
[2021-09-22] MEDS: FONDAPARINUX 2.5 MG/0.5 ML SYRINGE SUBCUT SCH (18:26)
[2021-09-22] MEDS: CETIRIZINE 10 MG TABLET PO SCH (21:17)
[2021-09-22] MEDS: ASPIRIN EC 325 MG TABLET PO SCH (21:17)
[2021-09-23] MEDS: INSULIN REGULAR 100 UNIT/ML SUBCUT SCH ×2 (07:36→12:24)
[2021-09-23] MEDS: CHOLECALCIFEROL 1,000 UNIT TABLET PO SCH (09:05)
[2021-09-23] MEDS: PANTOPRAZOLE 40 MG TABLET PO SCH (09:05)
[2021-09-23] MEDS: MAGNESIUM OXIDE 400 MG TABLET PO SCH (09:05)
[2021-09-23] MEDS: carvediloL 6.25 MG TABLET PO SCH (09:05)
[2021-09-23] MEDS: EZETIMIBE 10 MG TABLET PO SCH (09:05)
[2021-09-23] MEDS: POTASSIUM CHLORIDE 10 MEQ TABLET PO SCH (09:05)
[2021-09-23] MEDS: FUROSEMIDE 80 MG TABLET PO SCH (09:05)
[2021-09-23] MEDS: VENLAFAXINE 75 MG TABLET PO SCH (09:05)
[2021-09-23] MEDS: DOCUSATE SODIUM 100 MG CAPSULE PO SCH (09:06)
[2021-09-23] MEDS: allopurinoL 100 MG TABLET PO SCH (09:06)
[2021-09-23] MEDS: ENALAPRIL 5 MG TABLET PO SCH (09:07)
[2021-09-23 15:06] VITALS: BP 148/88
== END 2021-09-23 13:35 | disposition home or self-care (01) | DRG 470 ==
LOC: N.OR 05:55 → N.SDSINP 05:55 → N.3E 10:18
PROVIDERS: ADMIT Orthopaedic Surgery; ATTEND Orthopaedic Surgery